=== PATIENT | male | born 1985 | race Caucasian/White ===

== ENCOUNTER 2017-08-21 21:48 | Emergency (ER) | payer MEDICAID ==
[2017-08-21] MEDS ORDERED: PREDNISONE 20 MG TAB PO ONE ×2 (21:54→22:03)
[2017-08-21] MEDS ORDERED: IPRATROPIUM/ALBUTEROL (0.5MG/3MG) NEB INH ONE (21:54)
--- NOTE | 2017-08-21 21:59 | Emergency Department Record ---
History of Present Illness - General Chief Complaint: Shortness of breath Stated Complaint: SOB Time Seen by Provider: 08/21/17 21:54 Source: Patient Mode of Arrival: Ambulatory Limitations: No limitations - History of Present Illness Initial Comments: 31 yo male presents to ED with a CC of difficulty breathing and feeling anxious that began 3 days ago, worsened tonight. Patient reports recent URI sympotms, denies history of asthma or COPD. Patient denies chest pain or tightness, denies health problems at his baseline. MD Complaint: Shortness of breath Onset/Timin -: Days(s) Severity: Moderate Consistency: Constant Context: Recent URI Treatments Prior to Arrival: None - Related Data Home Oxygen Therapy: No Previous Rx's Medication Instructions Recorded Azithromycin [Zithromax] 250 mg PO DAILY #4 tab 08/10/16 Benzonatate [Tessalon] 1 cap PO Q8H PRN #25 cap 08/10/16 Ipratropium/Albuterol Sulfate 1 - 2 puff IH QID #1 inh 08/10/16 [Combivent] Prednisone [Prednisone 20Mg] 20 mg PO BID #10 tab 08/10/16 Albuterol Sulfate [Ventolin Hfa] 1 - 2 puff IH .EVERY 4-6 HRS PRN 08/21/17 #1 inhaler Prednisone [Prednisone 20Mg] 20 mg PO TID #12 tab 08/21/17 Allergies Allergy/AdvReac Type Severity Reaction Status Date / Time No Known Allergies Allergy no Verified 08/10/16 13:17 allergies Review of Systems Constitutional: Denies: Chills, Fever, Malaise, Night sweats Eyes: Denies: Eye discharge, Eye pain ENT: Reports: Congestion. Denies: Ear pain, Epistaxis Respiratory: Reports: Cough, Dyspnea, Wheezes Cardiovascular: Reports: Dyspnea on exertion. Denies: Chest pain Endocrine: Denies: Fatigue, Heat or cold intolerance Gastrointestinal: Denies: Abdominal pain, Nausea, Vomiting Genitourinary: Denies: Incontinence, Retention Musculoskeletal: Denies: Arthralgia, Back pain, Gout, Joint swelling Skin: Denies: Bruising, Change in color Neurological: Denies: Abnormal gait, Confusion, Headache, Seizure Psychiatric: Denies: Anxiety Hematological/Lymphatic: Denies: Anemia, Blood Clots Past Medical History - SOCIAL HISTORY Smoking Status: Never smoker Drug Use: None - RESPIRATORY Hx Respiratory Disorders: Yes Hx Bronchitis: Yes - CARDIOVASCULAR Hx Cardio Disorders: Yes Comment:: high cholesterol - NEURO Hx Neuro Disorders: No - GI Hx GI Disorders: No - Hx Genitourinary Disorders: No - ENDOCRINE Hx Endocrine Disorders: No - MUSCULOSKELETAL Hx Musculoskeletal Disorders: No - PSYCH Hx Psych Problems: No - HEMATOLOGY/ONCOLOGY Hx Hematology/Oncology Disorders: No Physical Exam - General General Appearance: Alert, Oriented x3, Cooperative, Moderate distress, Anxious Limitations: No limitations - Head Head exam: Atraumatic, Normocephalic, Normal inspection Head exam detail: negative: Abrasion, Contusion, Evans's sign, General tenderness, Hematoma, Laceration - Eye Eye exam: Normal appearance. negative: Conjunctival injection, Periorbital swelling, Periorbital tenderness, Scleral icterus - ENT Ear exam: negative: Auricular hematoma, Auricular trauma Nasal Exam: negative: Active bleeding, Discharge, Dried blood, Foreign body Mouth exam: negative: Drooling, Laceration, Muffled voice, Tongue elevation - Neck Neck exam: Normal inspection. negative: Meningismus, Tenderness - Respiratory Respiratory exam: Prolonged expiratory, Respiratory distress, Wheezes. negative : Rales, Rhonchi, Stridor - Cardiovascular Cardiovascular Exam: Regular rate, Normal rhythm, Normal heart sounds - GI/Abdominal GI/Abdominal exam: Soft. negative: Rebound, Rigid, Tenderness - Rectal Rectal exam: Deferred - exam: Deferred - Extremities Extremities exam: Normal inspection. negative: Calf tenderness, Pedal edema, Tenderness - Back Back exam: Denies: CVA tenderness (R), CVA tenderness (L) - Neurological Neurological exam: Alert, Normal gait, Oriented X3 - Psychiatric Psychiatric exam: Anxious - Skin Skin exam: Normal color. negative: Abrasion Type of lesion: negative: abrasion Course - Reevaluation(s) Reevaluation #1: 08/21/17 22:09 Patient reassessed following duoneb, reports that his symptoms are greatly improved. Reevaluation #2: 08/21/17 22:12 EKG: NSR 78 Normal axis, normal intervals No acute ST-T wave changes are present. Reevaluation #3: 08/21/17 22:36 CXR: No acute process Patient was updated on his radiology results, reports that he continues to feel well at this time. Will continue to observe in ED for reoccurrence of his symptoms. Reevaluation #4: 08/21/17 23:02 Patient reassessed and continues to be well appearing, symptoms are likely related to bronchospasm. Pulse 87, RR 20 on re-examination. Will discharge home on Ventolin and Prednisone for 4 more days for acute exacerbation, appears stable for discharge at this time. Disposition Disposition: Discharge Clinical Impression: Bronchospasm Disposition: Home, Self-Care Condition: (2) Stable Instructions: Bronchospasm (ED) Additional Instructions: Return to ED if your symptoms worsen or if you have any concerns. Ventolin and Prednisone as directed. Follow-up with your family doctor in 3-5 days as directed. Prescriptions: Albuterol Sulfate [Ventolin Hfa] 1 - 2 puff IH .EVERY 4-6 HRS PRN #1 inhaler PRN Reason: Difficulty In Breathing Prednisone [Prednisone 20Mg] 20 mg PO TID #12 tab Forms: Patient Portal Access Time of Disposition: 22:39 Quality - Quality Measures Quality Measures: N/A - Blood Pressure Screening Does Patient Have Any of the Following: No Blood Pressure Classification: Hypertensive Reading Systolic Measurement: 135 Diastolic Measurement: 105 Screening for High Blood Pressure: < First Hypertensive BP, F/U Documented > [ G8950] First Hypertensive Follow-up Interventions: Referral to alternative/primary care provider.
--- NOTE | 2017-08-22 13:18 | RADIOLOGY REPORT ---
EXAM: CHEST, TWO VIEWS HISTORY: ACUTE DIFFICULTY BREATHING. CHEST CONGESTION. TECHNIQUE: Two views of the chest were obtained. Comparison: Chest x-ray 08/10/16. FINDINGS: The lungs are clear. The cardiac silhouette, diaphragm, and osseous structures are unremarkable for age. IMPRESSION: NEGATIVE CHEST EXAMINATION. JOB NUMBER: [id number] MTDD
== END 2017-08-21 23:16 | disposition home or self-care (01) ==
LOC: ER 21:48
DX: J98.01 Acute bronchospasm (principal); R06.02 Shortness of breath
CPT/HCPCS: 99284 ×2; 71020; 94640; 93005; 93010; J7512

== ENCOUNTER 2017-08-22 09:38 | Emergency (ER) | payer MEDICAID ==
[2017-08-22] MEDS ORDERED: LORAZEPAM 2 MG/ML VIAL IV ONE (10:13)
[2017-08-22] MEDS ORDERED: METHYLPREDNISOLONE PF 125MG/VIAL IVP ONE (10:13)
[2017-08-22] MEDS ORDERED: IPRATROPIUM/ALBUTEROL (0.5MG/3MG) NEB INH ONE (10:36)
[2017-08-22] MEDS ORDERED: ALBUTEROL SULFATE (0.083%) 2.5 MG/3 ML NEB INH ONE (10:37)
[2017-08-22 10:59] LABS: BASO % 0.1 % (0-6); HEMATOCRIT 47.7 % (42.0-52.0); LYMPH % 7.6 % (16-45); MEAN CELL VOLUME 92.1 fl (81-97); MEAN CORPUSCULAR HEMOGLOBIN 32.8 pg (27-33); MEAN CORPUSCULAR HGB CONC 35.6 g/dl (32-36); MEAN PLATELET VOLUME 9.8 fl (7.4-10.4); PLATELET COUNT 455 K/uL (130-400); RED BLOOD COUNT 5.18 M/uL (4.40-5.70); RED CELL DISTRIBUTION WIDTH 12.1 % (11.5-14.5); WHITE BLOOD COUNT W/O DIFF 12.2 K/uL (4.2-12.2)
[2017-08-22 11:31] LABS: ALBUMIN 4.9 g/dL (4.0-5.0); ALKALINE PHOSPHATASE 126 U/L (40-129); ALT/SGPT 50 U/L (<41); AST/SGOT 25 U/L (10.0-50.0); BLOOD UREA NITROGEN 16 mg/dL (6-20); CREATININE 1.2 mg/dL (0.7-1.2); EST GLOMERULAR FILTRATION RATE > 60 mL/min; GLUCOSE,RANDOM 138 mg/dL (74-109); TOTAL PROTEIN 7.4 g/dL (6.6-8.7)
--- NOTE | 2017-08-22 12:00 | Emergency Department Record ---
History of Present Illness - General Chief Complaint: Difficulty Breathing Stated Complaint: KIKA Time Seen by Provider: 08/22/17 10:07 Source: Patient Mode of Arrival: Wheelchair Limitations: No limitations - History of Present Illness Initial Comments: pt is here for sob and anxiety MD Complaint: Anxiety, Shortness of breath Onset/Timin -: Days(s) Consistency: Intermittent Improves With: Bronchodilators Worsens With: Exertion Associated Symptoms: Cough Treatments Prior to Arrival: None - Related Data Home Oxygen Therapy: No Previous Rx's Medication Instructions Recorded Azithromycin [Zithromax] 250 mg PO DAILY #4 tab 08/10/16 Benzonatate [Tessalon] 1 cap PO Q8H PRN #25 cap 08/10/16 Ipratropium/Albuterol Sulfate 1 - 2 puff IH QID #1 inh 08/10/16 [Combivent] Prednisone [Prednisone 20Mg] 20 mg PO BID #10 tab 08/10/16 Albuterol Sulfate [Ventolin Hfa] 1 - 2 puff IH .EVERY 4-6 HRS PRN 08/21/17 #1 inhaler Prednisone [Prednisone 20Mg] 20 mg PO TID #12 tab 08/21/17 Allergies Allergy/AdvReac Type Severity Reaction Status Date / Time No Known Allergies Allergy no Verified 08/22/17 10:20 allergies Travel Screening - Travel/Exposure Within Last 30 Days Have you traveled within the last 30 days?: No - Travel/Exposure Within Last Year Have you traveled outside the [place] in the last year?: No - Additonal Travel Details Have you been exposed to anyone with a communicable illness?: No - Travel Symptoms Symptom Screening: None Review of Systems Reviewed: No additional complaints except as noted below Constitutional: Reports: As per HPI. Denies: Chills, Fever, Malaise, Night sweats, Weakness, Weight change Eyes: Reports: As per HPI. Denies: Eye discharge, Eye pain, Photophobia, Vision change ENT: Reports: As per HPI. Denies: Congestion, Dental pain, Ear pain, Epistaxis , Hearing loss, Throat pain Respiratory: Reports: As per HPI. Denies: Cough, Dyspnea, Hemoptysis, Stridor, Wheezes Cardiovascular: Reports: As per HPI. Denies: Arrhythmia, Chest pain, Dyspnea on exertion, Edema, Murmurs, Orthopnea, Palpitations, Paroxysmal nocturnal dyspnea, Rheumatic Fever, Syncope Endocrine: Reports: As per HPI. Denies: Fatigue, Heat or cold intolerance, Polydipsia, Polyuria Gastrointestinal: Reports: As per HPI. Denies: Abdominal pain, Constipation, Diarrhea, Hematemesis, Hematochezia, Melena, Nausea, Vomiting Genitourinary: Reports: As per HPI. Denies: Dysuria, Frequency, Hematuria, Incontinence, Retention, Testicular pain, Testicular mass, Urgency Musculoskeletal: Reports: As per HPI. Denies: Arthralgia, Back pain, Gout, Joint swelling, Myalgia, Neck pain Skin: Reports: As per HPI. Denies: Bruising, Change in color, Change in hair/ nails, Lesions, Pruritus, Rash Neurological: Reports: As per HPI. Denies: Abnormal gait, Confusion, Headache, Numbness, Paresthesias, Seizure, Tingling, Tremors, Vertigo, Weakness Psychiatric: Reports: As per HPI. Denies: Anxiety, Auditory hallucinations, Depression, Homicidal thoughts, Suicidal thoughts, Visual hallucinations Hematological/Lymphatic: Reports: As per HPI. Denies: Anemia, Blood Clots, Easy bleeding, Easy bruising, Swollen glands Past Medical History - SOCIAL HISTORY Smoking Status: Never smoker Alcohol Use: Rare Drug Use: None - RESPIRATORY Hx Respiratory Disorders: Yes Hx Bronchitis: Yes - CARDIOVASCULAR Hx Cardio Disorders: Yes Comment:: high cholesterol - NEURO Hx Neuro Disorders: No - GI Hx GI Disorders: No - Hx Genitourinary Disorders: No - ENDOCRINE Hx Endocrine Disorders: No - MUSCULOSKELETAL Hx Musculoskeletal Disorders: No - PSYCH Hx Psych Problems: No - HEMATOLOGY/ONCOLOGY Hx Hematology/Oncology Disorders: No Family Medical History Any Significant Family History?: No Physical Exam - General General Appearance: Alert, Oriented x3, Cooperative, Mild distress - Head Head exam: Normal inspection - Eye Eye exam: Normal appearance, PERRL, EOMI Pupils: Normal accommodation - ENT ENT exam: Normal exam, Mucous membranes moist, Normal external ear exam, Normal orophraynx, TM's normal bilaterally Ear exam: Normal external inspection. negative: External canal tenderness Nasal Exam: Normal inspection. negative: Discharge, Sinus tenderness Mouth exam: Normal external inspection, Tongue normal Teeth exam: Normal inspection. negative: Dental caries Throat exam: Normal inspection. negative: Tonsillar erythema, Tonsillar exudate - Neck Neck exam: Normal inspection, Full ROM. negative: Tenderness - Respiratory Respiratory exam: Normal lung sounds bilaterally. negative: Respiratory distress - Cardiovascular Cardiovascular Exam: Regular rate, Normal rhythm, Normal heart sounds - GI/Abdominal GI/Abdominal exam: Soft, Normal bowel sounds. negative: Tenderness - Rectal Rectal exam: Deferred - exam: Deferred - Extremities Extremities exam: Normal inspection, Full ROM, Normal capillary refill. negative: Tenderness - Back Back exam: Reports: Normal inspection, Full ROM. Denies: Muscle spasm, Rash noted, Tenderness - Neurological Neurological exam: Alert, CN II-XII intact, Normal gait, Oriented X3 - Psychiatric Psychiatric exam: Anxious - Skin Skin exam: Dry, Intact, Normal color, Warm Course Vital Signs 08/22/17 08/22/17 08/22/17 09:47 09:51 10:02 Temperature 98.5 F Pulse Rate 90 96 H 96 H Respiratory 28 H 24 24 Rate Blood Pressure 129/95 129/95 Pulse Ox 95 93 L 93 L 08/22/17 10:07 Temperature Pulse Rate 98 H Respiratory 24 Rate Blood Pressure Pulse Ox 94 L - Reevaluation(s) Reevaluation #1: 08/22/17 11:55 pt feels much better Medical Decision Making - Lab Data Result diagrams: 08/22/17 09:50 08/22/17 09:50 Lab Results 08/22/17 08/22/17 08/22/17 Range/Units 09:50 09:50 09:50 WBC 12.2 (4.2-12.2) K/uL RBC 5.18 (4.40-5.70) M/uL Hgb 17.0 (14.0-18.0) gm/dl Hct 47.7 (42.0-52.0) % MCV 92.1 (81-97) fl MCH 32.8 (27-33) pg MCHC 35.6 (32-36) g/dl RDW 12.1 (11.5-14.5) % Plt Count 455 H (130-400) K/uL MPV 9.8 (7.4-10.4) fl Neutrophils % 91.0 H (47-80) % Band Neutrophils % 0.0 (0-5) % Lymphocytes % 7.6 L (16-45) % Monocytes % 7.0 (0-9) % Eosinophils % 0.0 (0-6) % Basophils % 0.1 (0-6) % Lymphocytes 6.0 L (16-45) % Monocytes 3.0 (0-9) % Basophils 0.0 (0-6) % Eosinophil Count 0.0 (0-6) % D-Dimer < 0.19 (0-0.59) mg/L FEU Sodium 140 (136-145) mmol/L Potassium 4.0 (3.4-4.5) mmol/L Chloride 95 L (98-107) mmol/L Carbon Dioxide 23.0 (22-29) mmol/L Anion Gap 22.0 H (7-16) BUN 16 (6-20) mg/dL Creatinine 1.2 (0.7-1.2) mg/dL Estimated GFR > 60 mL/min Random Glucose 138 H (74-109) mg/dL Calcium 9.7 (8.6-10.0) mg/dL Total Bilirubin 0.80 (0.2-1.0) mg/dL AST 25 (10.0-50.0) U/L ALT 50 H (<41) U/L Alkaline Phosphatase 126 (40-129) U/L Total Protein 7.4 (6.6-8.7) g/dL Albumin 4.9 (4.0-5.0) g/dL Globulin 2.5 (1.4-4.8) gm/dL Albumin/Globulin Ratio 2.0 H (1.1-1.8) Disposition Disposition: Discharge Clinical Impression: SOB (shortness of breath), Anxiety Reactive airway disease Qualifiers: Asthma severity: mild Asthma persistence: intermittent Asthma complication type : with acute exacerbation Qualified Code(s): J45.21 - Mild intermittent asthma with (acute) exacerbation Disposition: Home, Self-Care Condition: (1) Good Instructions: Dyspnea (ED), Anxiety (ED) Additional Instructions: follow up with family doctor. return sooner if worse Quality - Quality Measures Quality Measures: N/A - Blood Pressure Screening Does Patient Have Any of the Following: No Blood Pressure Classification: Hypertensive Reading Systolic Measurement: 129 Diastolic Measurement: 95 Screening for High Blood Pressure: < Pre-Hypertensive BP, F/U Documented > [ G8950] Pre-Hypertensive Follow-up Interventions: Follow-up with rescreen every year.
== END 2017-08-22 12:26 | disposition home or self-care (01) ==
LOC: ER 09:38
DX: J45.21 Mild intermittent asthma with (acute) exacerbation (principal); R06.02 Shortness of breath; F41.9 Anxiety disorder, unspecified
CPT/HCPCS: 99284 ×2; 96374; 96375; 80053; 85379; 85027; 94640 ×2; J2060; J2930; J7613

== ENCOUNTER 2018-01-10 00:01 | Emergency (ER) | payer MEDICAID ==
--- NOTE | 2018-01-10 00:20 | Emergency Department Record ---
History of Present Illness - General Chief complaint: Flu Like Symptoms Stated complaint: FLU-LIKE SX'S Time Seen by Provider: 01/10/18 00:02 Source: Patient Mode of Arrival: Ambulatory Limitations: No limitations - History of Present Illness Initial comments: 32 yo male presents to ED with a 2-day history of fevers, chills, body aches, and non-productive cough symptoms. Patient denies previous history of asthma or COPD, denies health problems at his baseline. Patient denies any recent ill- contacts. MD Complaint: Generalized weakness Onset/Timin -: Days(s) Location: Generalized Quality: Aching Consistency: Constant Improves with: None Worsens with: None Associated Symptoms: Fever/chills - [place] Coma Scale Eye Response: (4) Open spontaneously Motor Response: (6) Obeys commands Verbal Response: (5) Oriented Sophia Total: 15 - Related Data Previous Rx's Medication Instructions Recorded Albuterol Sulfate [Proair Hfa] 1 - 2 puff IH .EVERY 4-6 HOURS PRN 01/10/18 #1 inhaler Oseltamivir Phosphate [Tamiflu] 75 mg PO BID #10 capsule 01/10/18 Allergies Allergy/AdvReac Type Severity Reaction Status Date / Time No Known Allergies Allergy no Verified 01/10/18 00:03 allergies Travel Screening - Travel/Exposure Within Last 30 Days Have you traveled within the last 30 days?: No - Travel/Exposure Within Last Year Have you traveled outside the [place] in the last year?: Yes Location Detail:: [place] - Additonal Travel Details Have you been exposed to anyone with a communicable illness?: No - Travel Symptoms Symptom Screening: None Review of Systems Constitutional: Reports: Chills, Fever, Malaise. Denies: Night sweats Eyes: Denies: Eye discharge, Eye pain ENT: Reports: Congestion. Denies: Ear pain, Epistaxis Respiratory: Reports: Cough. Denies: Dyspnea, Hemoptysis Cardiovascular: Denies: Chest pain, Dyspnea on exertion Endocrine: Reports: Fatigue. Denies: Heat or cold intolerance Gastrointestinal: Denies: Abdominal pain, Nausea, Vomiting Genitourinary: Denies: Incontinence, Retention Musculoskeletal: Reports: Myalgia. Denies: Arthralgia, Back pain, Gout, Joint swelling Skin: Denies: Bruising, Change in color Neurological: Denies: Abnormal gait, Confusion, Headache, Seizure Psychiatric: Denies: Anxiety Hematological/Lymphatic: Denies: Anemia, Blood Clots Past Medical History - SOCIAL HISTORY Smoking Status: Never smoker Alcohol Use: Occasional Drug Use: None - RESPIRATORY Hx Respiratory Disorders: Yes Hx Bronchitis: Yes - CARDIOVASCULAR Hx Cardio Disorders: Yes Comment:: high cholesterol - NEURO Hx Neuro Disorders: No - GI Hx GI Disorders: No - Hx Genitourinary Disorders: No - ENDOCRINE Hx Endocrine Disorders: No - MUSCULOSKELETAL Hx Musculoskeletal Disorders: No - PSYCH Hx Psych Problems: No - HEMATOLOGY/ONCOLOGY Hx Hematology/Oncology Disorders: No Family Medical History Any Significant Family History?: No Physical Exam - General General Appearance: Alert, Oriented x3, Cooperative, Mild distress Limitations: No limitations - Head Head exam: Atraumatic, Normocephalic, Normal inspection Head exam detail: negative: Abrasion, Contusion, Evans's sign, General tenderness, Hematoma, Laceration - Eye Eye exam: Normal appearance. negative: Conjunctival injection, Periorbital swelling, Periorbital tenderness, Scleral icterus - ENT Ear exam: negative: Auricular hematoma, Auricular trauma Nasal Exam: negative: Active bleeding, Discharge, Dried blood, Foreign body Mouth exam: negative: Drooling, Laceration, Muffled voice, Tongue elevation - Neck Neck exam: Normal inspection. negative: Meningismus, Tenderness - Respiratory Respiratory exam: Wheezes. negative: Respiratory distress, Rhonchi, Stridor - Cardiovascular Cardiovascular Exam: Regular rate, Normal rhythm, Normal heart sounds - GI/Abdominal GI/Abdominal exam: Soft. negative: Rebound, Rigid, Tenderness - Rectal Rectal exam: Deferred - exam: Deferred - Extremities Extremities exam: Normal inspection. negative: Pedal edema, Tenderness - Back Back exam: Denies: CVA tenderness (R), CVA tenderness (L) - Neurological Neurological exam: Alert, Normal gait, Oriented X3 - Psychiatric Psychiatric exam: Normal affect, Normal mood - Skin Skin exam: Normal color. negative: Abrasion Type of lesion: negative: abrasion Course Vital Signs 01/10/18 00:05 Temperature 100.4 F H Pulse Rate 96 H Respiratory 22 Rate Blood Pressure 120/41 Pulse Ox 96 - Reevaluation(s) Reevaluation #1: 01/10/18 00:28 Influenza B positive Patient was updated on all results, will initiate Tamiflu for treatment with recommendations for continued symptomatic care at home with Tylenol and Motrin as needed. Patient appears stable for discharge at this time. Disposition Disposition: Discharge Clinical Impression: Influenza B Disposition: Home, Self-Care Condition: (2) Stable Instructions: Influenza (ED) Additional Instructions: Return to ED if your symptoms worsen or if you have any concerns. Tamiflu as directed. Follow-up with your family doctor in 3-5 days as directed. Prescriptions: Albuterol Sulfate [Proair Hfa] 1 - 2 puff IH .EVERY 4-6 HOURS PRN #1 inhaler PRN Reason: Difficulty In Breathing Oseltamivir Phosphate [Tamiflu] 75 mg PO BID #10 capsule Forms: Patient Portal Access Time of Disposition: 00:32 Quality - Quality Measures Quality Measures: N/A - Blood Pressure Screening Does Patient Have Any of the Following: No Blood Pressure Classification: Pre-Hypertensive BP Reading Systolic Measurement: 120 Diastolic Measurement: 41 Screening for High Blood Pressure: < Pre-Hypertensive BP, F/U Documented > [ G8950] Pre-Hypertensive Follow-up Interventions: Referral to alternative/primary care provider.
[2018-01-10 00:28] LABS: INFLUENZA A NEGATIVE (NEGATIVE); INFLUENZA B POSITIVE (NEGATIVE)
[2018-01-10] MEDS ORDERED: OSTELTAMIVIR 75 MG CAP PO ONE (00:34)
== END 2018-01-10 00:40 | disposition home or self-care (01) ==
LOC: ER 00:01
DX: J10.1 Influenza due to other identified influenza virus with other respiratory manifestations (principal); R53.1 Weakness
CPT/HCPCS: 87400; 99282

== ENCOUNTER 2018-01-12 14:25 | Emergency (ER) | payer MEDICAID ==
[2018-01-12] MEDS ORDERED: IBUPROFEN 600 MG TABLET PO ONE (14:43)
[2018-01-12] MEDS ORDERED: ONDANSETRON HCL IV 4 MG/2 ML VIAL IVP ONE (14:43)
[2018-01-12] MEDS ORDERED: ACETAMINOPHEN 325 MG TAB PO ONE (14:43)
--- NOTE | 2018-01-12 14:47 | Emergency Department Record ---
History of Present Illness - General Chief complaint: Flu Like Symptoms Stated complaint: ELEVATED TEMP,VOMITING,NAUSEA,KIKA Time Seen by Provider: 01/12/18 14:38 Source: Patient Mode of Arrival: Ambulatory Limitations: No limitations - History of Present Illness Initial comments: The patient is here due to not feeling well for 4-5 days. He was diagnosed with the Flu B 2 days ago and started on Tamiflu. Now he states he has a high fever, worse cough, and has been vomiting. There also is a mild VIRAMONTES and body aches. MD Complaint: Generalized weakness Onset/Timin -: Days(s) Location: Generalized Severity scale (1-10): 9 Quality: Aching Consistency: Constant Improves with: None Worsens with: None Associated Symptoms: Headaches, Nausea/vomiting - Related Data Previous Rx's Medication Instructions Recorded Albuterol Sulfate [Proair Hfa] 1 - 2 puff IH .EVERY 4-6 HOURS PRN 01/10/18 #1 inhaler Oseltamivir Phosphate [Tamiflu] 75 mg PO BID #10 capsule 01/10/18 Azithromycin [Zithromax] 250 mg PO DAILY #4 tab 01/12/18 Allergies Allergy/AdvReac Type Severity Reaction Status Date / Time No Known Allergies Allergy no Verified 01/10/18 00:03 allergies Travel Screening - Travel/Exposure Within Last 30 Days Have you traveled within the last 30 days?: No Review of Systems Constitutional: Reports: Chills, Fever, Malaise Eyes: Denies: Eye discharge ENT: Reports: Congestion Respiratory: Reports: Cough. Denies: Dyspnea Past Medical History - SOCIAL HISTORY Smoking Status: Never smoker - RESPIRATORY Hx Respiratory Disorders: Yes Hx Bronchitis: Yes - CARDIOVASCULAR Hx Cardio Disorders: Yes Comment:: high cholesterol - NEURO Hx Neuro Disorders: No - GI Hx GI Disorders: No - Hx Genitourinary Disorders: No - ENDOCRINE Hx Endocrine Disorders: No - MUSCULOSKELETAL Hx Musculoskeletal Disorders: No - PSYCH Hx Psych Problems: No - HEMATOLOGY/ONCOLOGY Hx Hematology/Oncology Disorders: No Family Medical History Any Significant Family History?: No Physical Exam - General General Appearance: Alert, Oriented x3, Cooperative, No acute distress - Head Head exam: Atraumatic, Normocephalic, Normal inspection - Eye Eye exam: Normal appearance, PERRL - ENT Throat exam: Normal inspection. negative: Tonsillar erythema, Tonsillar exudate - Neck Neck exam: Normal inspection, Full ROM. negative: Meningismus (The neck is very supple.), Tenderness - Respiratory Respiratory exam: Normal lung sounds bilaterally. negative: Respiratory distress - Cardiovascular Cardiovascular Exam: Regular rate, Normal rhythm, Normal heart sounds - GI/Abdominal GI/Abdominal exam: Soft, Normal bowel sounds. negative: Tenderness - Extremities Extremities exam: Normal inspection, Full ROM, Normal capillary refill. negative: Tenderness - Neurological Neurological exam: Alert, Normal gait. negative: Abnormal gait, Motor sensory deficit - Skin Skin exam: negative: Rash Course Vital Signs 01/12/18 14:39 Temperature 103.0 F H Pulse Rate 114 H Respiratory 18 Rate Blood Pressure 99/76 Pulse Ox 93 L - Reevaluation(s) Reevaluation #1: The patient is doing better at this time. I did discuss the xray report with him and the need for IV Abx and orals for home. 01/12/18 16:07 Reevaluation #2: The patient is doing a lot better at this time. His temp is much improved and he denies any CP, SOB, or VIRAMONTES now. I did explain to him that we will be treating him for community acquired pneumonia and will continue the Zithromax. He is to be off work 3 days and see his family doctor if not better in 3 days. The patient was doing very well at discharge and was drinking fluid well with no vomiting. 01/12/18 17:48 01/12/18 18:13 Medical Decision Making - Data Complexity MDM Data: Labs Ordered and/or Reviewed, X-Ray Ordered and/or Reviewed - Lab Data Result diagrams: 01/12/18 14:55 01/12/18 14:55 - Radiology Data Radiology results: Report reviewed (CXR: Subtle infiltrate LLL.) Disposition Disposition: Discharge Clinical Impression: Pneumonia Qualifiers: Pneumonia type: due to unspecified organism Laterality: left Lung location: lower lobe of lung Qualified Code(s): J18.1 - Lobar pneumonia, unspecified organism Disposition: Home, Self-Care Condition: (2) Stable Instructions: Pneumonitis (ED), Influenza (ED) Additional Instructions: Please drink plenty of fluids and alternate Tylenol and Motrin every 4 hours. Continue the Tamiflu and Zithromax as directed. Off work 3 days. Please see your family doctor if not better in 3 days. Return to the ER for any fever > 103 , shortness of breath or vomiting. Prescriptions: Azithromycin [Zithromax] 250 mg PO DAILY #4 tab Forms: Patient Portal Access Time of Disposition: 17:52 Quality - Quality Measures Quality Measures: N/A - Blood Pressure Screening View Details: Yes Does Patient Have Any of the Following: No Blood Pressure Classification: Normal BP Reading Systolic Measurement: 94 Diastolic Measurement: 71 Screening for High Blood Pressure: < Normal BP, F/U Not Required > [[id number]]
[2018-01-12 15:04] LABS: BASO % 0.1 % (0-6); GRAN % 76.3 % (47-80); HEMATOCRIT 43.4 % (42.0-52.0); HEMOGLOBIN 15.8 gm/dl (14.0-18.0); MEAN CELL VOLUME 89.5 fl (81-97); MEAN CORPUSCULAR HEMOGLOBIN 32.6 pg (27-33); MEAN CORPUSCULAR HGB CONC 36.4 g/dl (32-36); MEAN PLATELET VOLUME 9.5 fl (7.4-10.4); MONO % 11.6 % (0-9); PLATELET COUNT 213 K/uL (130-400); RED BLOOD COUNT 4.85 M/uL (4.40-5.70); RED CELL DISTRIBUTION WIDTH 12.2 % (11.5-14.5); WHITE BLOOD COUNT W/O DIFF 7.3 K/uL (4.2-12.2)
[2018-01-12 15:12] LABS: BLOOD UREA NITROGEN 12 mg/dL (6-20); CREATININE 1.3 mg/dL (0.7-1.2); EST GLOMERULAR FILTRATION RATE > 60 mL/min
[2018-01-12 15:13] LABS: TOTAL PROTEIN 6.5 g/dL (6.6-8.7)
[2018-01-12 15:15] LABS: GLUCOSE,RANDOM 110 mg/dL (74-109)
[2018-01-12 15:18] LABS: ALB/GLOB RATIO 1.7 (1.1-1.8); ALBUMIN 4.1 g/dL (4.0-5.0); ALKALINE PHOSPHATASE 63 U/L (40-129); ALT/SGPT 34 U/L (<41); AST/SGOT 25 U/L (10.0-50.0)
[2018-01-12] MEDS ORDERED: AZITHROMYCIN 500 MG in 0.9 % SODIUM CHLORIDE 250ML 250 ML IVPB ONE (16:05)
[2018-01-12] MEDS ORDERED: CEFTRIAXONE SODIUM 1 GM in 0.9 % SODIUM CHLORIDE 100ML 100 ML IVPB ONE (16:05)
--- NOTE | 2018-01-13 11:39 | RADIOLOGY REPORT ---
EXAM: CHEST, TWO VIEWS HISTORY: DIFFICULTY IN BREATHING. TECHNIQUE: Frontal and lateral views of the chest were performed. Comparison: 08/22/17. FINDINGS: The heart size is normal. No pulmonary vascular congestion. There are subtle infiltrates in the left lower lobe. No pleural effusion. IMPRESSION: SUBTLE INFILTRATE LEFT LOWER LOBE. THE REMAINDER OF THE EXAMINATION IS UNREMARKABLE. JOB NUMBER: [id number] MTDD
== END 2018-01-12 18:13 | disposition home or self-care (01) ==
LOC: ER 14:25
DX: J18.1 Lobar pneumonia, unspecified organism (principal); R53.1 Weakness; R11.2 Nausea with vomiting, unspecified; R51 Headache; R06.00 Dyspnea, unspecified
CPT/HCPCS: 99284 ×2; 96374; 96375; 85025; 86140; 80053; 71046; J2405; J0456; J7050